=== PATIENT | female | born 2000 | race African-American/Black ===

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

== ENCOUNTER 2021-10-22 12:15 | Emergency (ER) | payer BC, MEDICAID ==
[~2021-10-22] VITALS: Ht 170.2 cm; Wt 69.9 kg
[2021-10-22 12:50] VITALS: BP 105/63
[2021-10-22] MEDS ORDERED: IBUPROFEN 600 MG TABLET PO ONE (13:00)
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
[2021-10-22] MEDS ORDERED: IBUPROFEN 600 MG TABLET ONE (13:11)
[2021-10-22] MEDS ORDERED: IBUP-1957 PO (14:42)
--- NOTE | 2021-10-22 15:03 | NUR ---
Patient discharged to home in stable condition. Written and verbal after care instructions given. Patient verbalizes understanding of instruction.
== END 2021-10-22 15:06 | disposition home or self-care (01) ==
LOC: ER 13:00
DX: S90.31XA Contusion of right foot, initial encounter (principal); J45.909 Unspecified asthma, uncomplicated; F41.9 Anxiety disorder, unspecified; D64.9 Anemia, unspecified; X58.XXXA Exposure to other specified factors, initial encounter; Y93.89 Activity, other specified; Y92.89 Other specified places as the place of occurrence of the external cause; Y99.8 Other external cause status
CPT/HCPCS: 73630-TC